=== PATIENT | male | born 1990 | race Caucasian/White ===

== ENCOUNTER → 2020-12-01 08:33 | Outpatient (BNVA) | payer OTHER, SELFPAY | PROVIDERS: Family Provider Family Medicine; PCP Family Medicine; Visit Provider Nurse Practitioner Family | DX: Z20.822 Contact with and (suspected) exposure to COVID-19 (principal) | CPT/HCPCS: 87635 ==

== ENCOUNTER 2023-11-14 20:16 | Emergency (ER) | payer OTHER, MEDICAID, SELFPAY ==
[2023-11-14 20:19] VITALS: BP 183/99; PULSE 68; RESP 14; TEMP 36.4; O2SAT 98
--- NOTE | 2023-11-14 21:29 | W.ED.DENTAL ---
HPI - Dental/Oral General: Chief complaint: Dental/Oral Stated complaint: right side mouth pain top and bottom Time Seen by Provider: 11/14/23 21:21 History of Present Illness: 33-year-old male patient comes in today with right side dental pain. Patient appears nontoxic. Patient appears no acute distress. Respirations are even lungs are clear to auscultation. Patient has been taking amoxicillin for his dental abscess. Patient is scheduled to see a dentist on Sunday. Patient came in tonight due to uncontrolled pain. Review of Systems General: Reports: 10 or more systems reviewed and unremarkable except in HPI and below ENMT: Reports: dental pain Physical Exam Const: COMMON NORMALS: alert HENMT: COMMON NORMALS: normocephalic HEAD & SCALP: normocephalic TEETH & GINGIVA: Yes caries and Yes fair dentition Neck/C-Spine: COMMON NORMALS: full ROM Resp: COMMON NORMALS: normal respiratory effort Cardio: COMMON NORMALS: regular rate RATE: regular rate Back/Pelvis: COMMON NORMALS: thoracic and lumbar spine normal to inspection Extremity: COMMON NORMALS: full ROM Neuro: SENSORIUM/ORIENTATION: Yes alert Skin: COMMON NORMALS: turgor normal GENERAL SKIN EXAM: turgor normal Course Vital Signs: Vital signs: Vital Signs Temperature 97.5 F L 11/14/23 20:19 Pulse Rate 68 11/14/23 20:19 Respiratory Rate 14 11/14/23 20:19 Blood Pressure 183/99 11/14/23 20:19 Pulse Oximetry 98 11/14/23 20:19 Oxygen Delivery Me thod Room Air 11/14/23 20:19 MDM - Dental/Oral Medical Decision Making 33-year-old male patient comes in today with right jaw pain. On exam patient has some carious teeth. Patient is scheduled to have his teeth removed on Sunday but came in tonight due to persistent pain. Respirations are even lungs are clear to auscultation. Skin is warm and dry. Differential diagnosis malingering, dental abscess, dental pain, dental caries. Examination noted no significant abnormalities. No asymmetry in the posterior pharynx to suggest any retropharyngeal abscess or airway obstruction. Patient be placed on Augmentin for better coverage than just plain amoxicillin. Patient was also given some hydrocodone for his severe pain. Patient stated understanding of care plan need for follow-up or return to the ER. No radiology studies performed this visit Discharge Plan Discharge Patient Disposition: Home Clinical Impression: Dental abscess Condition: Stable Prescriptions: New amoxicillin-pot clavulanate 875-125 mg tablet 1 tab PO BID Qty: 14 0RF hydrocodone-acetaminophen 7.5-325 mg tablet 1 tab PO Q6H PRN (Reason: pain) Qty: 10 0RF No Action guaifenesin [Mucinex] 600 mg tablet extended release 12hr 600 mg PO BID Discharge Orders: Discharge ED (Routine); Ordered 11/14/23 Ordered By: Evan Sung Referrals: Minh Espinoza MD [Primary Care Provider] - Discharge Diet: Usual diet Discharge Activity: Increase activity as tolerated Patient Instructions: Dental Abscess (ED) Activity Restrictions/Additional Instructions: Follow-up with dentist for definitive care. Coding Level of Care Code ED [employer] for Torsten Dawson
[2023-11-14] MEDS: amoxicillin-clav 875-125 mg Tablet 1 TAB PO (21:49)
[2023-11-14] MEDS: HYDROcodone-acetaminophen 10-325 mg Tablet 1 TAB PO (21:50)
[2023-11-14 23:46] VITALS: BP 183/99; PULSE 68; RESP 14; TEMP 36.4; O2SAT 98
== END 2023-11-14 21:51 | disposition home or self-care (01) ==
PROVIDERS: Emergency Provider Nurse Practitioner Family; PCP Family Medicine
DX: K04.7 Periapical abscess without sinus (principal)
CPT/HCPCS: 99283